=== PATIENT | female | born 1965 | race Caucasian/White ===

== ENCOUNTER 2016-07-08 12:21 | Outpatient (CLI) | payer OTHER ==
[~2016-07-08 12:21] MED LIST: BACLOFEN10 MG PO; EPIPEN 2-PAK0.3 MG; HAIR/SKIN/NAILS PO; HYDROMORPHONE HC2 MG PO; NEURONTIN300 MG PO; OXYCONTIN CR10 MG PO; PEPCID COMPLETE PO; PHENTERMINE HCL15 MG PO; ZOFRAN ODT4 MG PO
--- NOTE | 2016-07-08 12:53 | DIAGNOSTIC IMAGING REPORT ---
PROCEDURE: XR SHOULDER 2 OR MORE VW-RIGHT INDICATION: SHOULDER PAIN TECHNIQUE: Three views. COMPARISON: None. FINDINGS: Calcific tendonitis. No fracture or dislocation. IMPRESSION: 1. Calcific tendonitis
== END 2016-07-08 23:00 ==
LOC: LAB SRH 12:21
DX: M75.31 Calcific tendinitis of right shoulder (principal); R73.09 Other abnormal glucose

== ENCOUNTER 2016-07-17 07:11 | Outpatient (CLI) | payer OTHER ==
--- NOTE | 2016-07-17 08:14 | DIAGNOSTIC IMAGING REPORT ---
PROCEDURE: US ABDOMEN ULTRASOUND-LIMITED INDICATION: ABD PAIN RUQ, initial encounter. TECHNIQUE: Lopez scale and color Doppler sonographic images of the abdomen were obtained. COMPARISON: None. FINDINGS: Normal gallbladder without gallstones. Normal CBD measures 3.7 mm. Negative Morrow's sign. Liver demonstrates increased echogenicity. Pancreas not well visualized. Aorta and IVC are patent. Normal hepatopetal flow. Normal right kidney measures 9.1 cm. IMPRESSION: 1. Normal gallbladder 2. Hepatic steatosis versus intrinsic liver disease.
--- NOTE | 2016-07-17 08:20 | DIAGNOSTIC IMAGING REPORT ---
PROCEDURE: XR THORACIC SPINE 3 VIEWS INDICATION: Chronic back pain. Initial encounter. TECHNIQUE: Three views. COMPARISON: None. FINDINGS: Normal alignment without fracture. Moderate degenerative changes. Paraspinal soft tissues are normal. IMPRESSION: 1. Moderate degenerative changes. 2. No acute changes.
== END 2016-07-17 23:00 ==
LOC: US SRH 07:11
DX: R10.11 Right upper quadrant pain (principal); M51.34 Other intervertebral disc degeneration, thoracic region